=== PATIENT | female | born 1990 | race American Indian/Alaskan Native ===

== ENCOUNTER 2019-11-22 17:21 | Emergency (ER) | payer SELFPAY ==
[2019-11-22] MEDS ORDERED: Sodium Chloride 0.9% 1,000 ML IV ONE (17:25)
[2019-11-22] MEDS ORDERED: Pantoprazole 40 MG in Sodium Chloride 0.9% 20 ML IVPUSH ONE (17:25)
[2019-11-22] MEDS ORDERED: Ondansetron 4 MG/2 ML SDV IVPUSH ONE ×2 (17:37→17:45)
--- NOTE | 2019-11-22 17:53 | EDM.PDOC ---
ED HPI GENERAL MEDICAL PROBLEM - General Chief Complaint: Gastrointestinal Problem Stated Complaint: INTOXICATED Time Seen by Provider: 11/22/19 17:40 Source of Information: Reports: Patient History Limitations: Reports: No Limitations - History of Present Illness INITIAL COMMENTS - FREE TEXT/NARRATIVE: This 28 year old female was admitted to the ED with chief complaint of abdominal pain with nausea and vomiting blood (coffee grounds) that started around 8:00AM this morning after drinking 6-8 shots of Vodka. She denies any radiation of pain into her back. She denies any dark or black stools or any blood in her stool. She denies any chest pain or SOB. She denies any urinary symptoms. She denies any other complaints at this time. Onset: Sudden Improves with: Reports: None Worsens with: Reports: Other (vomiting) Abdomen Pain Score (Numeric/FACES): 5 - Related Data Allergies Allergy/AdvReac Type Severity Reaction Status Date / Time No Known Allergies Allergy Verified 11/22/19 17:29 Home Meds: Home Meds Pantoprazole Sodium [Protonix] 40 mg PO DAILY 30 Days #30 tablet. 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: Musculoskeletal History: Reports: None Neurological History: Reports: None Psychiatric History: Reports: None Endocrine/Metabolic History: Reports: None Hematologic History: Reports: None Immunologic History: Reports: None Oncologic (Cancer) History: Reports: None Dermatologic History: Reports: None - Infectious Disease History Infectious Disease History: Reports: None - Past Surgical History HEENT Surgical History: Reports: None Cardiovascular Surgical History: Reports: None Respiratory Surgical History: Reports: None GI Surgical History: Reports: None Female Surgical History: Reports: Other (See Below) Endocrine Surgical History: Reports: None Neurological Surgical History: Reports: None Musculoskeletal Surgical History: Reports: None Oncologic Surgical History: Reports: Other (See Below) Dermatological Surgical History: Reports: None Social & Family History - Family History Family Medical History: Noncontributory - Tobacco Use Smoking Status *Q: Current Every Day Smoker Years of Tobacco use: 20 Packs/Tins Daily: 0.5 - Caffeine Use Caffeine Use: Reports: None - Recreational Drug Use Recreational Drug Use: No ED ROS GENERAL - Review of Systems Review Of Systems: See Below Constitutional: Reports: No Symptoms HEENT: Reports: No Symptoms Respiratory: Reports: No Symptoms Cardiovascular: Reports: No Symptoms Endocrine: Reports: No Symptoms GI/Abdominal: Reports: Abdominal Pain (epigastric area with radiation), Hematemesis, Vomiting (a small amount of "coffee ground" liquid. Did not see red blood.). Denies: Anorexia, Black Stool, Bloody Stool, Diarrhea : Reports: No Symptoms Musculoskeletal: Reports: No Symptoms Skin: Reports: No Symptoms ED EXAM, GI/ABD - Physical Exam Exam: See Below Exam Limited By: No Limitations (Has a smell of alcohol on her breath.) General Appearance: Alert, WD/WN, No Apparent Distress, Anxious (slightly anxious) Throat/Mouth: Normal Inspection, Normal Lips, Normal Teeth, Normal Gums, Normal Oropharynx Head: Atraumatic, Normocephalic Neck: Normal Inspection, Supple, Non-Tender, Full Range of Motion Respiratory/Chest: No Respiratory Distress, Lungs Clear, Normal Breath Sounds, Respiratory Distress. No: Rales, Rhonchi, Wheezing Cardiovascular: Normal Peripheral Pulses, Regular Rate, Rhythm, No Edema, No JVD , No Murmur GI/Abdominal Exam: Normal Bowel Sounds, Soft, No Organomegaly, No Distention, No Abnormal Bruit, No Mass, Other (mild tenderness noted in the epigastric area. ) (Female) Exam: Deferred Rectal (Female) Exam: Deferred (at this time. The patient did not want a rectal exam.) Back Exam: Normal Inspection Extremities: Normal Inspection, Normal Range of Motion, Non-Tender Neurological: Alert, Oriented (times 4), CN II-XII Intact, Normal Cognition, Normal Reflexes, No Motor/Sensory Deficits Psychiatric: Normal Affect, Normal Mood (She states that she was drinking because her birthday is tomorrow.) Skin Exam: Warm, Dry, Intact, Normal Color, No Rash Lymphatic: No Adenopathy Course - Vital Signs Text/Narrative:: I re-evaluated the patient at 6:34PM. Her vital sings are normal. Her abdomen is unremarkable (no tenderness of any kind) at this time. All of her diagnostic test were unremarkable. She will be discharged. She agrees with the discharge plan. Last Recorded V/S: Last Vital Signs Temp 96.3 F L 11/22/19 17:30 Pulse 89 11/22/19 17:30 Resp 18 11/22/19 17:30 BP 124/88 11/22/19 17:30 Pulse Ox 97 11/22/19 17:30 - Orders/Labs/Meds Orders: Active Orders 24 hr Category Date Time Status Urine [HCG QUALITATIVE,URINE] [URCHEM] Stat Lab 11/22/19 17:26 Ordered Labs: Laboratory Tests 11/22/19 11/22/19 11/22/19 Range/Units 17:50 17:50 17:50 WBC 11.19 H (4.0-11.0) K/uL RBC 4.76 (4.30-5.90) M/uL Hgb 13.9 (12.0-16.0) g/dL Hct 41.4 (36.0-46.0) % MCV 87.0 (80.0-98.0) fL MCH 29.2 (27.0-32.0) pg MCHC 33.6 (31.0-37.0) g/dL RDW Std Deviation 45.1 (28.0-62.0) fl RDW Coeff of Shelbie 14 (11.0-15.0) % Plt Count 398 (150-400) K/uL MPV 9.40 (7.40-12.00) fL Neut % (Auto) 81.6 H (48.0-80.0) % Lymph % (Auto) 15.5 L (16.0-40.0) % Cabell % (Auto) 2.3 (0.0-15.0) % Eos % (Auto) 0.3 (0.0-7.0) % Baso % (Auto) 0.3 (0.0-1.5) % Neut # (Auto) 9.1 H (1.4-5.7) K/uL Lymph # (Auto) 1.7 (0.6-2.4) K/uL Cabell # (Auto) 0.3 (0.0-0.8) K/uL Eos # (Auto) 0.0 (0.0-0.7) K/uL Baso # (Auto) 0.0 (0.0-0.1) K/uL Nucleated RBC % 0.0 /100WBC Nucleated RBCs # 0 K/uL INR 0.98 Sodium 145 (136-145) mmol/L Potassium 3.6 (3.5-5.1) mmol/L Chloride 106 (98-107) mmol/L Carbon Dioxide 24.9 (21.0-32.0) mmol/L BUN 9 (7.0-18.0) mg/dL Creatinine 0.9 (0.6-1.0) mg/dL Est Cr Clr Drug Dosing 89.69 mL/min Estimated GFR (MDRD) > 60.0 ml/min Glucose 121 H (74-106) mg/dL Calcium 8.3 L (8.5-10.1) mg/dL Total Bilirubin 0.2 (0.2-1.0) mg/dL AST 13 L (15-37) IU/L ALT 18 (14-63) IU/L Alkaline Phosphatase 90 (46-116) U/L Total Protein 7.5 (6.4-8.2) g/dL Albumin 4.1 (3.4-5.0) g/dL Globulin 3.4 (2.6-4.0) g/dL Albumin/Globulin Ratio 1.2 (0.9-1.6) Lipase 82 (73-393) U/L Meds: Medications Discontinued Medications Generic Name Dose Route Start Last Admin Trade Name Ronq PRN Reason Stop Dose Admin Pantoprazole Sodium 40 mg/ 20 mls @ 420 mls/hr 11/22/19 17:25 11/22/19 17:46 Sodium Chloride IVPUSH 11/22/19 17:27 420 mls/hr ONETIME ONE Administration Sodium Chloride 1,000 mls @ 1,000 mls/hr 11/22/19 17:25 11/22/19 17:46 Normal Saline IV 11/22/19 18:24 1,000 mls/hr .Bolus ONE Administration Lorazepam 0.5 mg 11/22/19 18:19 11/22/19 18:27 Ativan IVPUSH 11/22/19 18:20 0.5 mg ONETIME ONE Administration Ondansetron HCl 4 mg 11/22/19 17:37 11/22/19 17:46 Zofran IVPUSH 11/22/19 17:38 4 mg ONETIME ONE Administration Ondansetron HCl 4 mg 11/22/19 17:45 Zofran IVPUSH 11/22/19 17:46 ONETIME ONE Departure - Departure Time of Disposition: 18:45 Disposition: Home, Self-Care 01 Condition: Good Clinical Impression: Gastritis due to alcohol without hemorrhage Qualifiers: Chronicity: acute Qualified Code(s): K29.20 - Alcoholic gastritis without bleeding - Discharge Information *PRESCRIPTION DRUG MONITORING PROGRAM REVIEWED*: Yes *COPY OF PRESCRIPTION DRUG MONITORING REPORT IN PATIENT YFN: Yes Prescriptions: Pantoprazole Sodium [Protonix] 40 mg PO DAILY 30 Days #30 tablet.dr Instructions: Gastritis, Adult, [id number] Referrals: PCP,None [Primary Care Provider] - Forms: ED Department Discharge Additional Instructions: Take all medications as directed. Follow up with your PCP in the next two to four days. Drink plenty of clear liquids for the next 12-24 hours and advance your diet as tolerated. Do not drink alcohol for 10 days and not to an excess when you do drink. Rest for the next 24 hours. Return to the ED if your condition gets worse or should you have any questions or concerns. The following information is given to patients seen in the emergency department who are being discharged to home. This information is to outline your options for follow-up care. We provide all patients seen in our emergency department with a follow-up referral. The need for follow-up, as well as the timing and circumstances, are variable depending upon the specifics of your emergency department visit. If you don't have a primary care physician on staff, we will provide you with a referral. We always advise you to contact your personal physician following an emergency department visit to inform them of the circumstance of the visit and for follow-up with them and/or the need for any referrals to a consulting specialist. The emergency department will also refer you to a specialist when appropriate. This referral assures that you have the opportunity for follow-up care with a specialist. All of these measure are taken in an effort to provide you with optimal care, which includes your follow-up. Under all circumstances we always encourage you to contact your private physician who remains a resource for coordinating your care. When calling for follow-up care, please make the office aware that this follow-up is from your recent emergency room visit. If for any reason you are refused follow-up, please contact the [facility] Emergency Department at and asked to speak to the emergency department charge nurse. Sepsis Event Note - Evaluation Sepsis Screening Result: No Definite Risk - Focused Exam Vital Signs: Vital Signs Temp Pulse Resp BP Pulse Ox 11/22/19 17:30 96.3 F L 89 18 124/88 97 Date Exam was Performed: 11/22/19 Time Exam was Performed: 18:40 - My Orders Last 24 Hours: My Active Orders 11/22/19 17:26 Urine [HCG QUALITATIVE,URINE] [URCHEM] Stat - Assessment/Plan Last 24 Hours: My Active Orders 11/22/19 17:26 Urine [HCG QUALITATIVE,URINE] [URCHEM] Stat
[2019-11-22] MEDS ORDERED: LORazepam 2 MG/ML SDV IVPUSH ONE (18:19)
[2019-11-22 18:26] LABS: BLOOD UREA NITROGEN,BUN 9 mg/dL (7.0-18.0); CARBON DIOXIDE,CO2 24.9 mmol/L (21.0-32.0); CHLORIDE,CL 106 mmol/L (98-107); GLUCOSE RANDOM 121 mg/dL (74-106); LIPASE 82 U/L (73-393); POTASSIUM,K 3.6 mmol/L (3.5-5.1); SODIUM,NA 145 mmol/L (136-145)
== END 2019-11-22 18:51 | disposition home or self-care (01) ==
LOC: MW.ED 17:21
DX: K29.20 Alcoholic gastritis without bleeding (principal); F17.210 Nicotine dependence, cigarettes, uncomplicated; Z79.899 Other long term (current) drug therapy
CPT/HCPCS: 36415; 80053; 83690; 85025; 85610; 96361; 96374; 96375; 99284; 99284-25; C9113; J2060; J2405; J7030

== ENCOUNTER 2022-04-10 20:16 | Emergency (ER) | payer SELFPAY | END 2022-04-10 21:52 | LOC: MW.ED 20:16 | DX: S09.90XA Unspecified injury of head, initial encounter (principal); W22.8XXA Striking against or struck by other objects, initial encounter | CPT/HCPCS: 70450; 70450-26; 99283 ==

== ENCOUNTER 2022-08-25 21:52 | Emergency (ER) | payer BC ==
[2022-08-25] MEDS ORDERED: Ibuprofen 400 MG Tab PO ONE (23:16)
[2022-08-25] MEDS ORDERED: Acetaminophen 325 MG Tab PO ONE (23:16)
[2022-08-25] MEDS ORDERED: Lidocaine 5% 700 MG Patch TOP ONE (23:17)
== END 2022-08-26 00:50 ==
LOC: MW.ED 21:52
DX: S30.0XXA Contusion of lower back and pelvis, initial encounter (principal); F17.210 Nicotine dependence, cigarettes, uncomplicated; Z88.5 Allergy status to narcotic agent; Z86.16 Personal history of COVID-19; Y04.0XXA Assault by unarmed brawl or fight, initial encounter
CPT/HCPCS: 72100; 81003; 99284; A9270